=== PATIENT | male | born 1965 | race Caucasian/White ===

== ENCOUNTER 2019-09-04 08:41 | Emergency (ER) | payer OTHER ==
[2019-09-04 08:51] VITALS: BP 137/85; PULSE 90
[2019-09-04] MEDS ORDERED: LORazepam 2 MG/ML SDV IVPUSH ONE (08:59)
[2019-09-04] MEDS ORDERED: Ondansetron 4 MG/2 ML SDV IVPUSH ONE (08:59)
[2019-09-04] MEDS ORDERED: Dextrose 5%-0.9% NaCl 1,000 ML IV SCH (09:00)
--- NOTE | 2019-09-04 09:03 | EDM.PDOC ---
ED HPI GENERAL MEDICAL PROBLEM - General Chief Complaint: Chest Pain Stated Complaint: CHEST PAIN Time Seen by Provider: 09/04/19 08:53 Source of Information: Reports: Patient History Limitations: Reports: No Limitations - History of Present Illness INITIAL COMMENTS - FREE TEXT/NARRATIVE: 54-year-old male presents to the ED for evaluation of central chest pressure discomfort that he's had since last night. Worse yesterday afternoon and last evening with a sense of closing in his chest. He has a history of intermittent process with anxiety disorder and believes this is likely the cause of his symptoms but he wants to make sure. Is under a lot of stress at present. Currently working at [employer] here in [place] does not do a lot of lifting pushing or pulling. He chews tobacco but does not smoke. He used to have medication for anxiety relief he believes Xanax but is not sure. Currently in between providers. States no trouble swallowing this morning or sputum production no fever or chills. No excessive burping or belching. Not really prone to reflux disease. Stomach is a little bit queasy as well this morning. No diarrhea or vomiting. Onset: Sudden Onset Date: 09/03/19 Onset Time: 18:00 Duration: Hour(s):, Intermittent, Waxing/Waning Location: Reports: Chest (Central chest with no radiation.) Quality: Reports: Ache, Pressure Severity: Moderate Improves with: Reports: None (5 out of 10) Worsens with: Reports: None Context: Denies: Activity, Exercise, Lifting, Sick Contact, Trauma, Other Associated Symptoms: Reports: Chest Pain. 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: Other (see below) (None.) Mid-Sternal Epigastric Pain Score (Numeric/FACES): 7 - Related Data Allergies Allergy/AdvReac Type Severity Reaction Status Date / Time No Known Allergies Allergy Verified 09/04/19 08:51 Home Meds: Home Meds ALPRAZolam [Xanax] 0.5 mg PO Q8H PRN #15 tablet 09/04/19 [Rx] Past Medical History Other Genitourinary History: vasectomy Psychiatric History: Reports: Anxiety - Past Surgical History GI Surgical History: Reports: Cholecystectomy Male Surgical History: Reports: Lithotripsy (ESWL), Vasectomy Social & Family History - Living Situation & Occupation Living situation: Reports: Occupation: Employed ED ROS GENERAL - Review of Systems Review Of Systems: See Below Constitutional: Reports: Malaise, Weakness, Fatigue, Decreased Appetite, Weight Loss. Denies: Fever, Chills HEENT: Reports: No Symptoms Respiratory: Reports: Shortness of Breath. Denies: No Symptoms, Wheezing, Pleuritic Chest Pain, Cough, Sputum, Hemoptysis Cardiovascular: Reports: Chest Pain, Dyspnea on Exertion (Mild.). Denies: Blood Pressure Problem (Chest a central heaviness pressure discomfort.), Claudication, Edema, Lightheadedness, Orthopnea Endocrine: Reports: Fatigue ( Worse last night.) GI/Abdominal: Reports: Nausea. Denies: Abdominal Pain : Reports: No Symptoms Musculoskeletal: Reports: No Symptoms Skin: Reports: No Symptoms Neurological: Reports: Dizziness Psychiatric: Reports: Anxiety, Other Hematologic/Lymphatic: Reports: No Symptoms Immunologic: Reports: No Symptoms (Insomnia) ED EXAM, GENERAL - Physical Exam Exam: See Below Exam Limited By: No Limitations General Appearance: Alert, WD/WN, Anxious, Mild Distress, Other (Temperature 36.6. Pulse is 90 sinus respiratory is 19 BP 1 3785 sats 100% on room air) Eye Exam: Bilateral Eye: Normal Inspection Throat/Mouth: Normal Inspection, Normal Lips, Normal Oropharynx Head: Atraumatic, Normocephalic Neck: Normal Inspection, Supple, Non-Tender, Full Range of Motion. No: Lymphadenopathy (L), Lymphadenopathy (R) Respiratory/Chest: No Respiratory Distress, Lungs Clear, Normal Breath Sounds, No Accessory Muscle Use, Chest Non-Tender, Other Cardiovascular: Normal Peripheral Pulses, Regular Rate, Rhythm, No Edema, No Gallop, No Murmur (Cannot elicit any chest wall pain on examination.), No Rub Peripheral Pulses: 3+: Carotid (L), Carotid (R), Posterior Tibial (L), Posterior Tibial (R), Dorsalis Pedis (L), Dorsalis Pedis (R) GI/Abdominal: Normal Bowel Sounds, Non-Tender, No Organomegaly, No Abnormal Bruit, No Mass, Pelvis Stable Extremities: Normal Inspection, Normal Range of Motion, Non-Tender Neurological: Alert, Oriented, CN II-XII Intact, Normal Cognition, Normal Gait Psychiatric: Anxious Skin Exam: Warm, Dry, Intact, Normal Color, No Rash EKG INTERPRETATION EKG Date: 09/04/19 Time: 08:46 Rhythm: NSR Rate (Beats/Min): 83 [place]: Normal P-Wave: Present QRS: Normal ST-T: Depressed (There is very slight ST segment depression in V3 only appears to be aberrancy.) QT: Normal EKG Interpretation Comments: Essentially normal ECG Course - Vital Signs Last Recorded V/S: Last Vital Signs Temp 36.6 C 09/04/19 08:48 Pulse 90 09/04/19 08:48 Resp 19 09/04/19 08:48 BP 137/85 09/04/19 08:48 Pulse Ox 100 09/04/19 08:48 - Orders/Labs/Meds Orders: Active Orders 24 hr Category Date Time Status Dextrose 5%-0.9% NaCl [Dextrose 5%-Normal Saline] 1,000 Med 09/04/19 09:00 Active ml IV ASDIRECTED Medication Orders Dextrose/Sodium Chloride (Dextrose 5%-Normal Saline) 1,000 mls @ 150 mls/hr IV ASDIRECTED ROB Last Admin: 09/04/19 09:28 Dose: 150 mls/hr Labs: Laboratory Tests 09/04/19 09/04/19 09/04/19 Range/Units 09:20 09:20 09:20 WBC 6.66 (4.23-9.07) K/mm3 RBC 5.44 (4.63-6.08) M/mm3 Hgb 16.3 (13.7-17.5) gm/dl Hct 46.2 (40.1-51.0) % MCV 84.9 (79.0-92.2) fl MCH 30.0 (25.7-32.2) pg MCHC 35.3 (32.2-35.5) g/dl RDW Std Deviation 41.0 (35.1-43.9) fL Plt Count 177 (163-337) K/mm3 MPV 10.8 (9.4-12.3) fl Neut % (Auto) 65.5 (34.0-67.9) % Lymph % (Auto) 22.4 (21.8-53.1) % Mineral % (Auto) 10.4 (5.3-12.2) % Eos % (Auto) 0.9 (0.8-7.0) Baso % (Auto) 0.6 (0.1-1.2) % Neut # (Auto) 4.37 (1.78-5.38) K/mm3 Lymph # (Auto) 1.49 (1.32-3.57) K/mm3 [place] # (Auto) 0.69 (0.30-0.82) K/mm3 Eos # (Auto) 0.06 (0.04-0.54) K/mm3 Baso # (Auto) 0.04 (0.01-0.08) K/mm3 PT 10.5 (9.7-12.0) SECONDS INR 0.96 APTT (22-31) SECONDS Sodium 139 (136-145) mEq/L Potassium 3.6 (3.5-5.1) mEq/L Chloride 103 (98-107) mEq/L Carbon Dioxide 25 (21-32) mEq/L Anion Gap 14.6 (5-15) BUN 14 (7-18) mg/dL Creatinine 1.0 (0.7-1.3) mg/dL Est Cr Clr Drug Dosing 92.03 mL/min Estimated GFR (MDRD) > 60 (>60) mL/min BUN/Creatinine Ratio 14.0 (14-18) Glucose 107 H (74-106) mg/dL Calcium 8.9 (8.5-10.1) mg/dL Magnesium 1.9 (1.8-2.4) mg/dl Total Bilirubin 0.8 (0.2-1.0) mg/dL AST 28 (15-37) U/L ALT 63 (16-63) U/L Alkaline Phosphatase 59 (46-116) U/L CK-MB (CK-2) 1.4 (0-3.6) ng/ml Troponin I < 0.017 (0.00-0.056) ng/mL Total Protein 7.4 (6.4-8.2) g/dl Albumin 4.1 (3.4-5.0) g/dl Globulin 3.3 gm/dL Albumin/Globulin Ratio 1.2 (1-2) 09/04/19 Range/Units 09:20 WBC (4.23-9.07) K/mm3 RBC (4.63-6.08) M/mm3 Hgb (13.7-17.5) gm/dl Hct (40.1-51.0) % MCV (79.0-92.2) fl MCH (25.7-32.2) pg MCHC (32.2-35.5) g/dl RDW Std Deviation (35.1-43.9) fL Plt Count (163-337) K/mm3 MPV (9.4-12.3) fl Neut % (Auto) (34.0-67.9) % Lymph % (Auto) (21.8-53.1) % [place] % (Auto) (5.3-12.2) % Eos % (Auto) (0.8-7.0) Baso % (Auto) (0.1-1.2) % Neut # (Auto) (1.78-5.38) K/mm3 Lymph # (Auto) (1.32-3.57) K/mm3 [place] # (Auto) (0.30-0.82) K/mm3 Eos # (Auto) (0.04-0.54) K/mm3 Baso # (Auto) (0.01-0.08) K/mm3 PT (9.7-12.0) SECONDS INR APTT 25 (22-31) SECONDS Sodium (136-145) mEq/L Potassium (3.5-5.1) mEq/L Chloride (98-107) mEq/L Carbon Dioxide (21-32) mEq/L Anion Gap (5-15) BUN (7-18) mg/dL Creatinine (0.7-1.3) mg/dL Est Cr Clr Drug Dosing mL/min Estimated GFR (MDRD) (>60) mL/min BUN/Creatinine Ratio (14-18) Glucose (74-106) mg/dL Calcium (8.5-10.1) mg/dL Magnesium (1.8-2.4) mg/dl Total Bilirubin (0.2-1.0) mg/dL AST (15-37) U/L ALT (16-63) U/L Alkaline Phosphatase (46-116) U/L CK-MB (CK-2) (0-3.6) ng/ml Troponin I (0.00-0.056) ng/mL Total Protein (6.4-8.2) g/dl Albumin (3.4-5.0) g/dl Globulin gm/dL Albumin/Globulin Ratio (1-2) Meds: Medications Generic Name Dose Route Start Last Admin Trade Name Andre PRN Reason Stop Dose Admin Dextrose/Sodium Chloride 1,000 mls @ 150 mls/hr 09/04/19 09:00 09/04/19 09:28 Dextrose 5%-Normal Saline IV 150 mls/hr ASDIRECTED ROB Administration Discontinued Medications Generic Name Dose Route Start Last Admin Trade Name Andre PRN Reason Stop Dose Admin Lorazepam 0.5 mg 09/04/19 08:59 09/04/19 09:29 Ativan IVPUSH 09/04/19 09:00 0.5 mg ONETIME ONE Administration Ondansetron HCl 4 mg 09/04/19 08:59 09/04/19 09:30 Zofran IVPUSH 09/04/19 09:00 4 mg ONETIME ONE Administration - Radiology Interpretation Free Text/Narrative:: 54-year-old male presents to the ED with central chest pressure discomfort since yesterday. He states he is under a great deal of stress over the last several days. He states he is prone to anxiety attacks and feels this is what has happened to cause his current chest discomfort. Did not sleep that well for the last 2 nights. Restlessness. Appetite remains fair and odynophagia with no burping or belching. No reflux. Benign abdominal examination with good heart tones in lung foreman are clear. Initial ECG was essentially sinus showingsigns of ischemia. Plan routine labs will be collected including cardiac markers. His current O2 sats are 100% and therefore d-dimer will not be done. Given Ativan 0.5 mg IV with Zofran 4 mg IV for nausea relief. - Re-Assessments/Exams Free Text/Narrative Re-Assessment/Exam: 10:00: Portable chest x-ray is within normal limits showing no cardiomegaly and clear lung foreman. 09/04/19 10:28 Labs reveal a normal white count at 6.66 with auto differential of 65.5%. Hemoglobin 16.3 with hematocrit of 46.2 suggesting perhaps mild hemoconcentration. Platelet counts 177,000. PT is 10.5 with an INR of 0.96. PTT is 25. Sodium 139 with a potassium of 3.6. Chloride 103 with a bicarbonate 25. Anion gap is 14.6. BUN is 14 with a creatinine of 1.0. GFR is greater than 60. Glucose 107. Calcium 8.9 magnesium 1.9. Liver function normal CK-MB fraction 1.4 troponin I is less than 0.017. Total protein is 7.4 with albumin fraction of 4.1. All labs are essentially normal. 09/04/19 10:50 discussed the results with the patient. It appears this probably is due to anxiety as I could find nothing else medically wrong. Patient reassured in this regard. I will write him a prescription for Xanax 0.5 mg every 8 hours when necessary for anxiety relief. His primary care physician in a couple of days time. Note given to excuse him from the workplace today. Departure - Departure Time of Disposition: 10:52 Disposition: Home, Self-Care 01 Reason for Transfer *Q: Other Condition: Fair Clinical Impression: Non-cardiac chest pain Anxiety disorder Qualifiers: Anxiety disorder type: generalized anxiety disorder Qualified Code(s): F41.1 - Generalized anxiety disorder Prescriptions: ALPRAZolam [Xanax] 0.5 mg PO Q8H PRN #15 tablet PRN Reason: anxiety relief Referrals: Ismael Weiss MD [Primary Care Provider] - Forms: ED Department Discharge, ED Return to Work/School Form Additional Instructions: Evaluation the emergency room today in regards to central chest discomfort with no radiation of the discomfort. You have good insight into the fact that you are under a good deal of anxiety and stress lately which could be causing symptoms. Blood tests revealed no abnormalities in particular no evidence of heart related illness. Chest x-ray was clear and ECG is normal as well. It appears that anxiety is likely causing some of your current symptom complex. You did receive intravenous Ativan 0.5 mg in the ED and Zofran 4 mg IV for nausea relief. I've written a prescription for Xanax 0.5 mg to be taken on a as- needed basis every 8 hours for anxiety relief if needed. Follow up with her personal care physician as planned to discuss options for long-term control of anxiety if needed. Activity as tolerated. Note given to excuse her from the workplace today. - My Orders Last 24 Hours: My Active Orders 09/04/19 09:00 Dextrose 5%-0.9% NaCl [Dextrose 5%-Normal Saline] 1,000 ml IV ASDIRECTED - Assessment/Plan Last 24 Hours: My Active Orders 09/04/19 09:00 Dextrose 5%-0.9% NaCl [Dextrose 5%-Normal Saline] 1,000 ml IV ASDIRECTED
--- NOTE | 2019-09-04 10:18 | CR ---
Chest: Portable view of the chest was obtained. Comparison: Prior chest x-ray of 03/23/17. Heart size and mediastinum are normal. Lungs are clear with no acute parenchymal change. Bony structures are grossly intact. Surgical clips are noted from prior cholecystectomy. Impression: 1. Nothing acute is appreciated on portable chest x-ray. Diagnostic code #2 This report was dictated in [place] Standard Time
== END 2019-09-04 11:07 | disposition home or self-care (01) ==
LOC: JD.ED 08:41
DX: R07.89 Other chest pain (principal); F41.1 Generalized anxiety disorder
CPT/HCPCS: 36415; 71045; 80053; 82553; 83735; 84484; 85025; 85610; 85730; 96361; 96374; 96375; 99285; J2060; J2405; J7042

== ENCOUNTER 2020-09-16 13:22 | Emergency (ER) | payer OTHER ==
[2020-09-16] MEDS ORDERED: FLU VACC QS2020-21(6MOS UP)/PF 60 MCG/0.5 ML SYRINGE IM ONE (13:45)
[2020-09-16 13:48] VITALS: BP 149/79; PULSE 93
--- NOTE | 2020-09-16 14:27 | CR ---
Chest: Portable view of the chest was obtained. Comparison: Prior chest x-ray of 09/04/19 and 03/23/17. Heart size and mediastinum are normal. Lungs are clear with no acute parenchymal change. Bony structures show nothing acute with only mild degenerative change. Impression: 1. Nothing acute is appreciated on portable chest x-ray. Diagnostic code #1
--- NOTE | 2020-09-16 14:32 | EDM.PDOC ---
ED HPI GENERAL MEDICAL PROBLEM - General Chief Complaint: Syncope Stated Complaint: SYNCOPE EPISODE/CHEST PRESSURE PRIOR Time Seen by Provider: 09/16/20 13:35 Source of Information: Reports: Patient History Limitations: Reports: No Limitations - History of Present Illness INITIAL COMMENTS - FREE TEXT/NARRATIVE: 55-year-old male presents to the emergency department with complaints of a syncopal episode just prior to arrival. Woke up this morning feeling slightly nauseated and went to work. 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 This was witnessed by his crew and they reported that after a minute or so he did regain consciousness. Patient denies any history of alcohol. States he drinks Mountain Dew every day but also drinks water and Gat orade type drinks. Denies any cardiac history, denies shortness of breath, chest pain or discomfort. Patient denies black tarry stools reports that he did have a bowel movement this morning and that was normal. Patient carries a past medical history of gastritis and anxiety. Patient did have a similar episode almost exactly a year ago. Onset: Today, Sudden Middle Chest Pain Score (Numeric/FACES): 4 - Related Data Allergies Allergy/AdvReac Type Severity Reaction Status Date / Time No Known Allergies Allergy Verified 09/04/19 08:51 Home Meds: Home Meds ALPRAZolam [Xanax] 0.5 mg PO Q8H PRN #15 tablet 09/04/19 [Rx] Omeprazole Magnesium [Prilosec] 20 mg PO DAILY 09/16/20 [History] Past Medical History Other Genitourinary History: vasectomy Psychiatric History: Reports: Anxiety - Past Surgical History GI Surgical History: Reports: Cholecystectomy Male Surgical History: Reports: Lithotripsy (ESWL), Vasectomy Social & Family History - Tobacco Use Tobacco Use Status *Q: Current Every Day Tobacco User Years of Tobacco use: 25 Packs/Tins Daily: 0.5 - Caffeine Use Caffeine Use: Reports: Soda - Recreational Drug Use Recreational Drug Use: No - Living Situation & Occupation Living situation: Reports: Occupation: Employed ED ROS GENERAL - Review of Systems Review Of Systems: See Below Constitutional: Reports: No Symptoms HEENT: Reports: No Symptoms Respiratory: Reports: No Symptoms Cardiovascular: Reports: Chest Pain (Pressure in the epigastric area), Syncope. Denies: Dyspnea on Exertion, Edema, Orthopnea, Palpitations Endocrine: Reports: No Symptoms GI/Abdominal: Reports: Nausea. Denies: Black Stool, Bloody Stool, Diarrhea, Vomiting : Reports: No Symptoms Musculoskeletal: Reports: No Symptoms Skin: Reports: No Symptoms Neurological: Reports: No Symptoms Psychiatric: Reports: No Symptoms Hematologic/Lymphatic: Reports: No Symptoms Immunologic: Reports: No Symptoms - Physical Exam Exam: See Below Exam Limited By: No Limitations General Appearance: Alert, WD/WN, No Apparent Distress Eye Exam: Bilateral Eye: PERRL Ears: Normal External Exam, Hearing Grossly Normal Nose: Normal Inspection Throat/Mouth: Normal Lips, No Airway Compromise Head Exam: Atraumatic, Normocephalic Neck: Normal Inspection, Supple, Non-Tender Respiratory/Chest: No Respiratory Distress, Lungs Clear, Normal Breath Sounds, Chest Non-Tender Cardiovascular: Normal Peripheral Pulses, Regular Rate, Rhythm, No Edema, No Murmur GI/Abdominal: Normal Bowel Sounds, Soft, Non-Tender, Other (Tenderness noted to epigastric area) (Male) Exam: Deferred Rectal (Males) Exam: Deferred Neuro Exam (Abbreviated): Alert, Oriented, Normal Cognition Back Exam: Normal Inspection, Full Range of Motion Extremities: Normal Inspection, Normal Range of Motion, Non-Tender, No Pedal Edema, Normal Capillary Refill Psychiatric: Normal Affect, Normal Mood Skin Exam: Warm, Dry, Intact, Normal Color, No Rash, Cool #1 Interpretation EKG Date: 09/16/20 Time: 13:35 Rhythm: NSR Rate (Beats/Min): 94 [place]: Normal P-Wave: Present QRS: Normal ST-T: Normal EKG Interpretation Comments: As per interpretation by Dr. Silvestre sinus rhythm at 94, poor R wave progression otherwise normal EKG, no signs of ischemia, T wave fluttering in lead III. Course - Vital Signs Last Recorded V/S: Last Vital Signs Temp 98.5 F 09/16/20 13:46 Pulse 93 09/16/20 13:46 Resp 20 09/16/20 13:46 BP 149/79 H 09/16/20 13:46 Pulse Ox 98 09/16/20 13:46 - Orders/Labs/Meds Orders: Active Orders 24 hr Category Date Time Status EKG 12 Lead [EKG Documentation Completion] [RC] STAT Care 12/15/20 13:45 Active Holter Monitor 48 Hours [RC] .PRN Care 09/16/20 14:37 Ordered Influenza Vaccine Charge [RC] .DISCHARGE Care 09/16/20 13:41 Active Orthostatic Vital Signs [RC] ASDIRECTED Care 09/16/20 14:17 Active Labs: Laboratory Tests 09/16/20 09/16/20 Range/Units 13:35 13:35 WBC 8.97 (4.23-9.07) K/mm3 RBC 5.33 (4.63-6.08) M/mm3 Hgb 16.0 (13.7-17.5) gm/dl Hct 46.7 (40.1-51.0) % MCV 87.6 (79.0-92.2) fl MCH 30.0 (25.7-32.2) pg MCHC 34.3 (32.2-35.5) g/dl RDW Std Deviation 41.6 (35.1-43.9) fL Plt Count 187 (163-337) K/mm3 MPV 10.8 (9.4-12.3) fl Neut % (Auto) 71.3 H (34.0-67.9) % Lymph % (Auto) 20.6 L (21.8-53.1) % [place] % (Auto) 7.4 (5.3-12.2) % Eos % (Auto) 0.2 L (0.8-7.0) Baso % (Auto) 0.3 (0.1-1.2) % Neut # (Auto) 6.39 H (1.78-5.38) K/mm3 Lymph # (Auto) 1.85 (1.32-3.57) K/mm3 [place] # (Auto) 0.66 (0.30-0.82) K/mm3 Eos # (Auto) 0.02 L (0.04-0.54) K/mm3 Baso # (Auto) 0.03 (0.01-0.08) K/mm3 Sodium 140 (136-145) mEq/L Potassium 4.0 (3.5-5.1) mEq/L Chloride 102 (98-107) mEq/L Carbon Dioxide 29 (21-32) mEq/L Anion Gap 13.0 (5-15) BUN 9 (7-18) mg/dL Creatinine 1.0 (0.7-1.3) mg/dL Est Cr Clr Drug Dosing 90.99 mL/min Estimated GFR (MDRD) > 60 (>60) mL/min BUN/Creatinine Ratio 9.0 L (14-18) Glucose 101 (74-106) mg/dL Calcium 8.9 (8.5-10.1) mg/dL Magnesium 1.9 (1.8-2.4) mg/dl Total Bilirubin 0.5 (0.2-1.0) mg/dL AST 29 (15-37) U/L ALT 66 H (16-63) U/L Alkaline Phosphatase 53 (46-116) U/L Troponin I < 0.017 (0.00-0.056) ng/mL Total Protein 7.5 (6.4-8.2) g/dl Albumin 4.2 (3.4-5.0) g/dl Globulin 3.3 gm/dL Albumin/Globulin Ratio 1.3 (1-2) Meds: Medications Discontinued Medications Generic Name Dose Route Start Last Admin Trade Name Freq PRN Reason Stop Dose Admin Influenza Virus Vaccine 60 mcg 09/16/20 13:45 Fluzone Quad [id number] Syringe IM 09/16/20 13:46 .ONCE ONE - Re-Assessments/Exams Free Text/Narrative Re-Assessment/Exam: 09/16/20 14:35 Labs reveal WBC 8.97, hemoglobin 16, hematocrit 46.7, platelet count 187, sodium 140, potassium 4.0, anion gap 13.0, BUN 9, creatinine 1.0, GFR greater than 60 glucose 101, magnesium 1.9, AST 29 ALT 66, troponin less than 0.017 09/16/20 14:38 Patient is will be placed on a 48-hour Holter monitor and will need to follow-up with his primary care physician. Departure - Departure Time of Disposition: 14:39 Disposition: Home, Self-Care 01 Condition: Good Clinical Impression: Syncope - Discharge Information Instructions: Syncope, [id number] Referrals: Ismael Weiss MD [Primary Care Provider] - Forms: ED Department Discharge Additional Instructions: You are seen in the emergency department today for a syncopal episode. EKG and all lab work are unremarkable. You will be sent home with a 48-hour Holter monitor which we will monitor your heart rate and any abnormalities over the course of the next 48 hours. This will then need to be returned to the hospital to be read by a trolley worker and you will need to follow-up with your primary care provider next Tuesday. Should your condition worsen or change please follow-up with your primary care provider or return to the emergency department. Sepsis Event Note (ED) - Evaluation Sepsis Screening Result: No Definite Risk - Focused Exam Vital Signs: Vital Signs Temp Pulse Resp BP Pulse Ox 09/16/20 13:46 98.5 F 93 20 149/79 H 98 - My Orders Last 24 Hours: My Active Orders 09/16/20 13:41 Influenza Vaccine Charge [RC] .DISCHARGE 09/16/20 13:45 EKG 12 Lead [EKG Documentation Completion] [RC] STAT 09/16/20 14:17 Orthostatic Vital Signs [RC] ASDIRECTED 09/16/20 14:37 Holter Monitor 48 Hours [RC] .PRN - Assessment/Plan Last 24 Hours: My Active Orders 09/16/20 13:41 Influenza Vaccine Charge [RC] .DISCHARGE 09/16/20 13:45 EKG 12 Lead [EKG Documentation Completion] [RC] STAT 09/16/20 14:17 Orthostatic Vital Signs [RC] ASDIRECTED 09/16/20 14:37 Holter Monitor 48 Hours [RC] .PRN
== END 2020-09-16 15:00 | disposition home or self-care (01) ==
LOC: JD.ED 13:22
DX: R55 Syncope and collapse (principal); R10.816 Epigastric abdominal tenderness; F41.9 Anxiety disorder, unspecified; F17.210 Nicotine dependence, cigarettes, uncomplicated; Z79.899 Other long term (current) drug therapy
CPT/HCPCS: 36415; 71045; 71045-26; 80053; 83735; 84484; 85025; 93005; 93010; 93225; 93226; 99283; 99284-25

== ENCOUNTER 2022-04-26 07:57 | Emergency (ER) | payer OTHER ==
[2022-04-26 08:14] VITALS: BP 135/78; PULSE 91
[2022-04-26 09:03] LABS: CORONAVIRUS COVID-19 NAA NEGATIVE (NEGATIVE)
== END 2022-04-26 10:14 | disposition home or self-care (01) ==
LOC: JD.ED 07:57
DX: R07.89 Other chest pain (principal); J06.9 Acute upper respiratory infection, unspecified; F17.210 Nicotine dependence, cigarettes, uncomplicated; Z86.16 Personal history of COVID-19; Z79.899 Other long term (current) drug therapy; Z20.822 Contact with and (suspected) exposure to COVID-19
CPT/HCPCS: 0241U; 36415; 70450; 71045; 80053; 84484; 85025; 93005; 99285; 93010; 99283

== ENCOUNTER 2023-03-15 09:05 | Emergency (ER) | payer OTHER ==
[2023-03-15] MEDS ORDERED: diphenhydrAMINE 50 MG/ML SDV IVPUSH ONE (10:45)
[2023-03-15] MEDS ORDERED: Prochlorperazine 10 MG in Sodium Chloride 0.9% 50 ML IV ONE (10:45)
[2023-03-15] MEDS ORDERED: Lactated Ringers 1,000 ML IV ONE (10:45)
[2023-03-15] MEDS ORDERED: Prochlorperazine 10 MG/2 ML SDV ONE (10:57)
[2023-03-15] MEDS ORDERED: Prochlorperazine 10 MG/2 ML SDV IVPUSH ONE (11:07)
[2023-03-15 13:10] VITALS: BP 147/80; PULSE 79
== END 2023-03-15 13:05 | disposition home or self-care (01) ==
LOC: JD.ED 09:05
DX: S06.0X0A Concussion without loss of consciousness, initial encounter (principal); R51.9 Headache, unspecified; I10 Essential (primary) hypertension; Z86.16 Personal history of COVID-19; Z72.0 Tobacco use
CPT/HCPCS: 96361; 96374; 96375; 99283; J0780; J1200; J7120

== ENCOUNTER 2023-08-02 08:48 | Emergency (ER) | payer OTHER ==
[2023-08-02] MEDS ORDERED: Aspirin 81 MG Tab.Chew PO ONE (08:49)
[2023-08-02] MEDS ORDERED: Sodium Chloride 0.9% 10 ML Syringe FLUSH PRN (08:49)
[2023-08-02 09:20] LABS: BASOPHILS ABSOLUTE AUTO 0.1 K/mm3 (0.0-0.2); BASOPHILS PERCENT AUTO 0.7 % (0.0-1.0); EOSINOPHILS ABSOLUTE AUTO 0.1 K/mm3 (0.0-0.4); EOSINOPHILS PERCENT AUTO 0.7 % (0.0-6.0); HEMATOCRIT 43.2 % (42.0-52.0); HEMOGLOBIN 15.4 gm/dl (14.0-18.0); IMMATURE GRAN ABSOLUTE AUTO 0.02 K/mm3 (0.00-0.05); IMMATURE GRAN PERCENT AUTO 0.3 % (0.0-0.4); LYMPHOCYTES ABSOLUTE AUTO 1.9 K/mm3 (1.0-4.8); LYMPHOCYTES PERCENT AUTO 25.7 % (24.0-44.0); MEAN CORPUSCULAR HEMOGLOBIN 31.1 pg (28.0-32.0); MEAN CORPUSCULAR HGB CONC 35.6 g/dl (32.0-36.0); MEAN CORPUSCULAR VOLUME 87.3 fl (83.0-99.0); MEAN PLATELET VOLUME 10.2 fl (9.4-12.4); MONOCYTES ABSOLUTE AUTO 0.6 K/mm3 (0.0-0.8); MONOCYTES PERCENT AUTO 8.6 % (0.0-8.0); NEUTROPHILS ABSOLUTE AUTO 4.8 K/mm3 (1.8-7.7); PLATELET COUNT,PLT 163 K/mm3 (150-400); RED BLOOD CELL COUNT 4.95 M/mm3 (4.52-5.90); WHITE BLOOD CELL COUNT,WBC 7.43 K/mm3 (3.9-11.3)
[2023-08-02 09:58] LABS: A/G RATIO 1.2 (1-2); ALBUMIN 3.9 g/dl (3.4-5.0); ANION GAP 14.5 (5-15); BILIRUBIN TOTAL 0.5 mg/dL (0.2-1.0); CALCIUM 9.1 mg/dL (8.5-10.1); EST CRCL DRUG DOSING (CG) 87.85 mL/min; MAGNESIUM 1.6 mg/dL (1.8-2.4); POTASSIUM,K 3.5 mEq/L (3.5-5.1); PROTEIN TOTAL,TP 7.1 g/dl (6.4-8.2)
[2023-08-02] MEDS ORDERED: Pantoprazole 40 MG Vial IVPUSH ONE (13:02)
[2023-08-02 13:31] LABS: D-DIMER QUANTITATIVE 0.26 mg/L (0.19-0.50); INR 1.02; PROTHROMBIN TIME 10.9 SECONDS (9.7-12.0)
[2023-08-02 13:46] VITALS: BP 133/77; PULSE 77
== END 2023-08-02 13:43 | disposition home or self-care (01) ==
LOC: JD.ED 08:48
DX: R07.9 Chest pain, unspecified (principal); I10 Essential (primary) hypertension; Z86.16 Personal history of COVID-19; Z79.899 Other long term (current) drug therapy
CPT/HCPCS: 36415; 71045; 80053; 83735; 84484; 85025; 85379; 85610; 93005; 96374; 99285; A9270; C9113; J3490; 93010; 99284

== ENCOUNTER 2023-10-13 10:53 | Emergency (ER) | payer BC, OTHER ==
[2023-10-13] MEDS ORDERED: Alum Hydrox/Mag Hydrox/Simeth 30 ML, Lidocaine 2% 15 ML PO ONE ×2 (11:14)
[2023-10-13] MEDS ORDERED: Sodium Chloride 0.9% 10 ML Syringe FLUSH PRN (11:15)
[2023-10-13 11:25] LABS: BASOPHILS ABSOLUTE AUTO 0.1 K/mm3 (0.0-0.2); BASOPHILS PERCENT AUTO 0.6 % (0.0-1.0); EOSINOPHILS PERCENT AUTO 0.4 % (0.0-6.0); HEMOGLOBIN 15.9 gm/dl (14.0-18.0); IMMATURE GRAN ABSOLUTE AUTO 0.03 K/mm3 (0.00-0.05); IMMATURE GRAN PERCENT AUTO 0.4 % (0.0-0.4); LYMPHOCYTES ABSOLUTE AUTO 2.7 K/mm3 (1.0-4.8); LYMPHOCYTES PERCENT AUTO 32.6 % (24.0-44.0); MEAN CORPUSCULAR HEMOGLOBIN 31.2 pg (28.0-32.0); MEAN CORPUSCULAR HGB CONC 35.3 g/dl (32.0-36.0); MEAN CORPUSCULAR VOLUME 88.4 fl (83.0-99.0); MEAN PLATELET VOLUME 10.3 fl (9.4-12.4); MONOCYTES ABSOLUTE AUTO 0.6 K/mm3 (0.0-0.8); MONOCYTES PERCENT AUTO 6.9 % (0.0-8.0); NEUTROPHILS ABSOLUTE AUTO 4.9 K/mm3 (1.8-7.7); NEUTROPHILS PERCENT AUTO 59.1 % (41.0-71.0); PLATELET COUNT,PLT 184 K/mm3 (150-400); RED BLOOD CELL COUNT 5.09 M/mm3 (4.52-5.90); WHITE BLOOD CELL COUNT,WBC 8.24 K/mm3 (3.9-11.3)
[2023-10-13 11:43] LABS: A/G RATIO 1.3 (1-2); ALBUMIN 4.2 g/dl (3.4-5.0); ANION GAP 14.4 (5-15); BILIRUBIN TOTAL 0.5 mg/dL (0.2-1.0); BUN/CREATININE RATIO 11.8 (14-18); CALCIUM 9.4 mg/dL (8.5-10.1); CREATININE 1.1 mg/dL (0.7-1.3); EST CRCL DRUG DOSING (CG) 81.08 mL/min; MAGNESIUM 1.6 mg/dL (1.8-2.4); POTASSIUM,K 4.4 mEq/L (3.5-5.1); PROTEIN TOTAL,TP 7.5 g/dl (6.4-8.2)
[2023-10-13 13:21] VITALS: BP 139/85; PULSE 99
== END 2023-10-13 12:21 | disposition home or self-care (01) ==
LOC: JD.ED 10:53
DX: K21.00 Gastro-esophageal reflux disease with esophagitis, without bleeding (principal); I10 Essential (primary) hypertension; Z86.16 Personal history of COVID-19
CPT/HCPCS: 36415; 71046; 80053; 83735; 84484; 85025; 93005; 99285; A9270; J3490

== ENCOUNTER 2025-04-19 17:09 | Emergency (ER) | payer BC, OTHER ==
[2025-04-19 17:39] LABS: BASOPHILS ABSOLUTE AUTO 0.1 K/mm3 (0.0-0.2); BASOPHILS PERCENT AUTO 0.9 % (0.0-1.0); EOSINOPHILS ABSOLUTE AUTO 0.1 K/mm3 (0.0-0.4); EOSINOPHILS PERCENT AUTO 1.1 % (0.0-6.0); IMMATURE GRAN ABSOLUTE AUTO 0.03 K/mm3 (0.00-0.05); IMMATURE GRAN PERCENT AUTO 0.5 % (0.0-0.4); LYMPHOCYTES ABSOLUTE AUTO 2.5 K/mm3 (1.0-4.8); LYMPHOCYTES PERCENT AUTO 37.2 % (24.0-44.0); MEAN PLATELET VOLUME 10.1 fl (9.4-12.4); MONOCYTES ABSOLUTE AUTO 0.5 K/mm3 (0.0-0.8); MONOCYTES PERCENT AUTO 8.1 % (0.0-8.0); NEUTROPHILS ABSOLUTE AUTO 3.5 K/mm3 (1.8-7.7); NEUTROPHILS PERCENT AUTO 52.2 % (41.0-71.0); NRBC ABSOLUTE 0.00 (0.00-0.02); NRBC PERCENT 0.0 % (0.0-0.2); PLATELET COUNT,PLT 180 K/mm3 (150-400); RED BLOOD CELL COUNT 5.03 M/mm3 (4.52-5.90); WHITE BLOOD CELL COUNT,WBC 6.64 K/mm3 (3.9-11.3)
[2025-04-19 18:02] LABS: A/G RATIO 1.1 (1-2); ALANINE AMINOTRANSFERASE,ALT 66.0 U/L (16-63); ASPARTATE AMNIOTRANSFERASE,AST 35.0 U/L (15-37); BILIRUBIN TOTAL 0.4 mg/dL (0.2-1.0); BLOOD UREA NITROGEN,BUN 12.0 mg/dL (7-18); CARBON DIOXIDE,CO2 25.0 mEq/L (21-32); CHLORIDE,CL 103.0 mEq/L (98-107); CREATININE 1.1 mg/dL (0.7-1.3); EST CRCL DRUG DOSING (CG) 77.96 mL/min; ESTIMATED GFR 78.0 mL/min (>60); GLUCOSE RANDOM 144.0 mg/dL (70-99); POTASSIUM,K 3.5 mEq/L (3.5-5.1); PROTEIN TOTAL,TP 6.8 g/dl (6.4-8.2); SODIUM,NA 140.0 mEq/L (136-145); TROPONIN I HIGH SENSITIVITY 4.0 pg/mL (<=76)
[2025-04-19] MEDS: Iopamidol 755 Mg/ML 100 ML Bottle IVPUSH ONE ×2 (18:09→19:25)
[2025-04-19] MEDS: Sodium Chloride 0.9% 10 ML Syringe FLUSH PRN (19:25)
[2025-04-19 20:07] LABS: TSH 5.759 uIU/mL (0.358-3.74)
[2025-04-19 20:24] LABS: T4 FREE 0.85 ng/dL (0.76-1.46)
[2025-04-19 21:00] VITALS: BP 118/88; PULSE 97
== END 2025-04-19 20:58 | disposition home or self-care (01) ==
LOC: JD.ED 17:09
DX: J18.9 Pneumonia, unspecified organism (principal); E83.42 Hypomagnesemia; Z79.899 Other long term (current) drug therapy
CPT/HCPCS: 36415; 70496; 71275; 80053; 83735; 84439; 84443; 84484; 85025; 93005; 96360; 99285; J7030; Q0144; Q9967; A9270-GY

== ENCOUNTER 2025-04-24 16:12 | Emergency (ER) | payer OTHER ==
[2025-04-24] MEDS ORDERED: Sodium Chloride 0.9% 10 ML Syringe FLUSH PRN (16:41)
[2025-04-24 16:53] LABS: BASOPHILS ABSOLUTE AUTO 0.1 K/mm3 (0.0-0.2); BASOPHILS PERCENT AUTO 0.8 % (0.0-1.0); EOSINOPHILS ABSOLUTE AUTO 0.1 K/mm3 (0.0-0.4); EOSINOPHILS PERCENT AUTO 0.6 % (0.0-6.0); IMMATURE GRAN ABSOLUTE AUTO 0.04 K/mm3 (0.00-0.05); IMMATURE GRAN PERCENT AUTO 0.4 % (0.0-0.4); LYMPHOCYTES ABSOLUTE AUTO 2.9 K/mm3 (1.0-4.8); LYMPHOCYTES PERCENT AUTO 27.7 % (24.0-44.0); MEAN PLATELET VOLUME 10.1 fl (9.4-12.4); MONOCYTES ABSOLUTE AUTO 0.9 K/mm3 (0.0-0.8); MONOCYTES PERCENT AUTO 8.0 % (0.0-8.0); NEUTROPHILS ABSOLUTE AUTO 6.6 K/mm3 (1.8-7.7); NEUTROPHILS PERCENT AUTO 62.5 % (41.0-71.0); NRBC ABSOLUTE 0.00 (0.00-0.02); NRBC PERCENT 0.0 % (0.0-0.2); PLATELET COUNT,PLT 194 K/mm3 (150-400); RED BLOOD CELL COUNT 5.68 M/mm3 (4.52-5.90); WHITE BLOOD CELL COUNT,WBC 10.60 K/mm3 (3.9-11.3)
[2025-04-24 17:14] LABS: A/G RATIO 1.2 (1-2); ALANINE AMINOTRANSFERASE,ALT 66 U/L (16-63); ASPARTATE AMNIOTRANSFERASE,AST 38 U/L (15-37); BILIRUBIN TOTAL 0.6 mg/dL (0.2-1.0); BLOOD UREA NITROGEN,BUN 13 mg/dL (7-18); CARBON DIOXIDE,CO2 30 mEq/L (21-32); CHLORIDE,CL 102 mEq/L (98-107); CREATININE 1.2 mg/dL (0.7-1.3); EST CRCL DRUG DOSING (CG) 71.47 mL/min; ESTIMATED GFR 70 mL/min (>60); GLUCOSE RANDOM 113 mg/dL (70-99); PROTEIN TOTAL,TP 7.5 g/dl (6.4-8.2); SODIUM,NA 140 mEq/L (136-145)
[2025-04-24 17:17] LABS: TROPONIN I HIGH SENSITIVITY < 4 pg/mL (<=76)
[2025-04-24 17:18] LABS: ETHANOL BLOOD MEDICAL 0.00 gm% (0.00); POTASSIUM,K 4.2 mEq/L (3.5-5.1)
[2025-04-24 19:06] VITALS: BP 126/72; PULSE 97
== END 2025-04-24 18:38 | disposition home or self-care (01) ==
LOC: JD.ED 16:12
DX: R42 Dizziness and giddiness (principal); R55 Syncope and collapse; I10 Essential (primary) hypertension; K21.9 Gastro-esophageal reflux disease without esophagitis; Z86.16 Personal history of COVID-19; Z90.49 Acquired absence of other specified parts of digestive tract; Z79.899 Other long term (current) drug therapy; Z87.891 Personal history of nicotine dependence
CPT/HCPCS: 36415; 71046; 80053; 80307; 83735; 84484; 85025; 86140; 93005; 93246; 96360; 99285; A9270; J7030; 93010; 99284